=== PATIENT | female | born 1980 | race Caucasian/White ===

== ENCOUNTER → 2019-03-10 | Day surgery (SDC) | payer OTHER ==
[~2019-03-10] MED LIST: DOXYCYCLINE HY100 M2 PO; Tylenol #3 PO
== END | disposition home or self-care (01) ==
LOC: ADM 03-08 08:30 → CIR.AMB 08:30
DX: N84.0 Polyp of corpus uteri (principal); D25.0 Submucous leiomyoma of uterus

== ENCOUNTER 2022-07-31 06:16 | Day surgery (SDC) | payer OTHER ==
[2022-07-31] MEDS ORDERED: MORGIDOX100 MG PO (15:18)
[2022-07-31] MEDS ORDERED: NAPR500T14 PO (15:18)
== END 2022-07-31 20:15 | disposition home or self-care (01) ==
LOC: CIR.AMB 06:16
PROVIDERS: ATTEND Obstetrics & Gynecology
DX: D25.0 Submucous leiomyoma of uterus (principal); Z20.822 Contact with and (suspected) exposure to COVID-19; Z88.8 Allergy status to other drugs, medicaments and biological substances; Z86.16 Personal history of COVID-19